=== PATIENT | female | born 1960 | race Two or more races ===

== ENCOUNTER 2022-09-03 07:43 | Emergency (ER) | payer OTHER ==
[~2022-09-03] VITALS: Ht 165.1 cm; Wt 98.9 kg
[2022-09-03] MEDS ORDERED: TOPROL XL25 M1 (08:01)
[2022-09-03] MEDS ORDERED: LIPITOR20 MG (08:01)
[2022-09-03] MEDS ORDERED: KETO10TA2 PO (10:38)
== END 2022-09-03 10:48 | disposition home or self-care (01) ==
LOC: ER 07:43
DX: S99.921A Unspecified injury of right foot, initial encounter (principal); W18.31XA Fall on same level due to stepping on an object, initial encounter; Y93.9 Activity, unspecified; Y92.019 Unspecified place in single-family (private) house as the place of occurrence of the external cause